=== PATIENT | female | born 1935 | race Caucasian/White ===

== ENCOUNTER 2021-05-27 04:07 | Inpatient (IN) | payer OTHER ==
[2021-05-27] MEDS ORDERED: ACETAMINOPHEN 1000 MG/100 ML VIAL IVPB ONE (04:35)
[2021-05-27] MEDS ORDERED: ACETAMINOPHEN INJECTION 100 ML IVPB ONE (04:44)
[2021-05-27] MEDS ORDERED: MINERAL OIL/PET HY-PHL TOPICAL OINTMENT 454 GM JAR TP ONE (05:42)
[2021-05-27 06:12] LABS: HEMATOCRIT 29.6 % (32.4-45.2); HEMOGLOBIN 9.4 GM/dL (10.7-15.3); MCH 24.6 pg (25.7-33.7); MCHC 31.7 g/dl (32.0-36.0); MEAN CELL VOLUME 77.6 fl (80-96); MEAN PLT VOLUME 7.7 fl (7.5-11.1); PLATELET COUNT 269 10^3/uL (134-434); RBC 3.81 M/mm3 (3.60-5.2); RDW 23.3 % (11.6-15.6); WHITE BLOOD COUNT 7.3 K/mm3 (4.0-10.0)
[2021-05-27 06:31] LABS: CHLORIDE 109 mmol/L (98-107); SODIUM 142 mmol/L (136-145)
[2021-05-27 06:33] LABS: CALCIUM 8.3 mg/dL (8.5-10.1)
[2021-05-27 06:34] LABS: ANION GAP 8 MMOL/L (8-16); BLOOD UREA NITROGEN 14.5 mg/dL (7-18); CO2 25 mmol/L (21-32); GLUCOSE,RANDOM 74 mg/dL (74-106)
[2021-05-27 06:36] LABS: SGPT/ALT 10 U/L (13-61)
[2021-05-27 06:37] LABS: CREATININE 0.7 mg/dL (0.55-1.3); SGOT/AST 13 U/L (15-37)
[2021-05-27 06:38] LABS: BILIRUBIN,TOTAL 0.4 mg/dL (0.2-1); TOT PROT 5.3 g/dl (6.4-8.2)
[2021-05-27 06:40] LABS: ALK PHOS 91 U/L (45-117)
[2021-05-27 06:58] LABS: EPI CELLS 3 /uL (0-25.1); HYALINE CASTS 1 /uL (0-3.1); PH,URINE 5.5 (5.0-8.0); URINE APPEARANCE CLOUDY; URINE BACTERIA >9,000 /uL (0-1359); URINE BILIRUBIN NEGATIVE (NEGATIVE); URINE COLOR YELLOW; URINE GLUCOSE (UA) NEGATIVE (NEGATIVE); URINE KETONE TRACE (NEGATIVE); URINE LEUK ESTERASE 2+ (NEGATIVE); URINE NITRITE POSITIVE (NEGATIVE); URINE PROTEIN 1+ (NEGATIVE); URINE RBC 23 /uL (0-23.9); URINE WBC 1399 /uL (0-25.8)
[2021-05-27] MEDS ORDERED: CEFTRIAXONE 1 GM/50 ML BAG ONE (08:42)
[2021-05-27 10:09] LABS: ANISOCYTOSIS 2+; MACROCYTOSIS 0; PLATELET ESTIMATE NORMAL
[2021-05-27] MEDS ORDERED: ACETAMINOPHEN 325 MG TABLET (FP) PO PRN (11:28)
[2021-05-27] MEDS ORDERED: SODIUM CHLORIDE 1,000 ML IV SCH (11:30)
[2021-05-27] MEDS ORDERED: CEFTRIAXONE 1,000 MG in DEXTROSE 5%-WATER - 50 ML IVPB ONE (12:09)
[2021-05-28] MEDS ORDERED: DEXTROSE 5%-WATER - 50 ML IVPB ONE (08:55)
[2021-05-28] MEDS ORDERED: cefTRIAXone SODIUM 1 GM VIAL ONE (08:55)
[2021-05-28] MEDS: ENOXAPARIN NA (PORCINE) 40 MG/0.4 ML DISP.SYRIN SQ SCH (09:47)
[2021-05-28] MEDS: CEFTRIAXONE 1 GM in DEXTROSE 5%-WATER - 50 ML IVPB SCH (09:47)
[2021-05-28 09:55] LABS: BASO % 0.7 % (0-2.0); EOS % 1.4 % (0-4.5); HEMATOCRIT 29.6 % (32.4-45.2); HEMOGLOBIN 9.1 GM/dL (10.7-15.3); LYMPH % 6.3 % (8-40); MCH 24.7 pg (25.7-33.7); MCHC 30.9 g/dl (32.0-36.0); NEUT % 80.6 % (42.8-82.8); PLATELET COUNT 279 10^3/uL (134-434); RDW 23.6 % (11.6-15.6); WHITE BLOOD COUNT 5.5 K/mm3 (4.0-10.0)
[2021-05-28 10:20] LABS: ALBUMIN 1.8 g/dl (3.4-5.0); BLOOD UREA NITROGEN 10.6 mg/dL (7-18); CALCIUM 8.4 mg/dL (8.5-10.1); MAGNESIUM 1.9 mg/dL (1.8-2.4)
[2021-05-28 10:23] LABS: CREATININE 0.6 mg/dL (0.55-1.3); PHOSPHOROUS 2.3 mg/dL (2.5-4.9)
[2021-05-28 10:24] LABS: BILIRUBIN,TOTAL 0.3 mg/dL (0.2-1)
[2021-05-28 17:33] VITALS: BMI 24.5
[2021-05-28] MEDS: D5-1/2NS+10 MEQ KCL - 10 MEQ/1,000 ML INFUS.BAG IV SCH (18:09)
[2021-05-28] MEDS: QUEtiapine FUMARATE 25 MG TABLET PO PRN (19:48)
[2021-05-29] MEDS: D5-1/2NS+10 MEQ KCL - 10 MEQ/1,000 ML INFUS.BAG IV SCH ×3 (04:29→20:08)
[2021-05-29 08:47] LABS: BASO % 1.2 % (0-2.0); EOS % 7.1 % (0-4.5); HEMATOCRIT 30.6 % (32.4-45.2); HEMOGLOBIN 9.1 GM/dL (10.7-15.3); LYMPH % 11.7 % (8-40); MCH 24.8 pg (25.7-33.7); MCHC 29.9 g/dl (32.0-36.0); MEAN CELL VOLUME 83.1 fl (80-96); MONO % 15.6 % (3.8-10.2); NEUT % 64.4 % (42.8-82.8); PLATELET COUNT 259 10^3/uL (134-434); RBC 3.68 M/mm3 (3.60-5.2); WHITE BLOOD COUNT 4.1 K/mm3 (4.0-10.0)
[2021-05-29] MEDS ORDERED: DEXTROSE 5%-WATER - 50 ML IVPB ONE (09:03)
[2021-05-29] MEDS ORDERED: cefTRIAXone SODIUM 1 GM VIAL ONE (09:03)
[2021-05-29 09:19] LABS: CALCIUM 7.7 mg/dL (8.5-10.1); MAGNESIUM 1.7 mg/dL (1.8-2.4)
[2021-05-29 09:20] LABS: BLOOD UREA NITROGEN 8.7 mg/dL (7-18)
[2021-05-29 09:23] LABS: CREATININE 0.6 mg/dL (0.55-1.3)
[2021-05-29] MEDS ORDERED: POTASSIUM CHLORIDE TABS 20 MEQ TABLET.ER (FP) PO ONE (09:27)
[2021-05-29] MEDS ORDERED: MAGNESIUM SULF 50% (8.12 MEQ/2 ML-1 GM VIAL) IVPB ONE (09:28)
[2021-05-29] MEDS: ENOXAPARIN NA (PORCINE) 40 MG/0.4 ML DISP.SYRIN SQ SCH (10:17)
[2021-05-29] MEDS: amLODIPine BESYLATE 5 MG TABLET (FP) PO SCH (10:17)
[2021-05-29] MEDS: CEFTRIAXONE 1 GM in DEXTROSE 5%-WATER - 50 ML IVPB SCH (10:18)
[2021-05-29] MEDS: ZINC OXIDE/PANTHENOL/VITAMIN E 56 GM TUBE TP SCH ×2 (16:52→23:00)
[2021-05-29] MEDS: QUEtiapine FUMARATE 25 MG TABLET PO PRN (20:07)
[2021-05-30] MEDS: D5-1/2NS+10 MEQ KCL - 10 MEQ/1,000 ML INFUS.BAG IV SCH ×2 (06:17→20:07)
[2021-05-30 08:34] LABS: BASO % 1.1 % (0-2.0); HEMATOCRIT 28.1 % (32.4-45.2); HEMOGLOBIN 8.9 GM/dL (10.7-15.3); LYMPH % 10.2 % (8-40); MCH 25.1 pg (25.7-33.7); MCHC 31.8 g/dl (32.0-36.0); MEAN CELL VOLUME 78.9 fl (80-96); MONO % 15.2 % (3.8-10.2); NEUT % 66.5 % (42.8-82.8); PLATELET COUNT 230 10^3/uL (134-434); RBC 3.56 M/mm3 (3.60-5.2); RDW 23.5 % (11.6-15.6); WHITE BLOOD COUNT 4.7 K/mm3 (4.0-10.0)
[2021-05-30 09:41] LABS: BLOOD UREA NITROGEN 5.8 mg/dL (7-18)
[2021-05-30 09:42] LABS: CALCIUM 7.5 mg/dL (8.5-10.1)
[2021-05-30 09:44] LABS: CREATININE 0.6 mg/dL (0.55-1.3)
[2021-05-30] MEDS ORDERED: cefTRIAXone SODIUM 1 GM VIAL ONE (10:17)
[2021-05-30] MEDS ORDERED: DEXTROSE 5%-WATER - 50 ML IVPB ONE (10:18)
[2021-05-30] MEDS: ZINC OXIDE/PANTHENOL/VITAMIN E 56 GM TUBE TP SCH ×2 (10:20→21:20)
[2021-05-30] MEDS: ENOXAPARIN NA (PORCINE) 40 MG/0.4 ML DISP.SYRIN SQ SCH (10:20)
[2021-05-30] MEDS: CEFTRIAXONE 1 GM in DEXTROSE 5%-WATER - 50 ML IVPB SCH (10:20)
[2021-05-30] MEDS: amLODIPine BESYLATE 5 MG TABLET (FP) PO SCH (10:20)
[2021-05-30 10:32] LABS: ANISOCYTOSIS 2+; MACROCYTOSIS 0; PLATELET ESTIMATE NORMAL
[2021-05-31] MEDS: D5-1/2NS+10 MEQ KCL - 10 MEQ/1,000 ML INFUS.BAG IV SCH (06:57)
[2021-05-31] MEDS ORDERED: cefTRIAXone SODIUM 1 GM VIAL ONE (09:39)
[2021-05-31] MEDS ORDERED: DEXTROSE 5%-WATER - 50 ML IVPB ONE (09:40)
[2021-05-31 09:50] LABS: BASO % 0.8 % (0-2.0); EOS % 4.9 % (0-4.5); HEMATOCRIT 27.5 % (32.4-45.2); HEMOGLOBIN 8.8 GM/dL (10.7-15.3); LYMPH % 8.6 % (8-40); MCH 25.2 pg (25.7-33.7); MCHC 32.1 g/dl (32.0-36.0); MEAN CELL VOLUME 78.6 fl (80-96); MEAN PLT VOLUME 7.9 fl (7.5-11.1); MONO % 11.6 % (3.8-10.2); NEUT % 74.1 % (42.8-82.8); PLATELET COUNT 234 10^3/uL (134-434); RDW 23.7 % (11.6-15.6); WHITE BLOOD COUNT 5.7 K/mm3 (4.0-10.0)
[2021-05-31] MEDS: amLODIPine BESYLATE 5 MG TABLET (FP) PO SCH (09:52)
[2021-05-31] MEDS: ENOXAPARIN NA (PORCINE) 40 MG/0.4 ML DISP.SYRIN SQ SCH (09:52)
[2021-05-31] MEDS: CEFTRIAXONE 1 GM in DEXTROSE 5%-WATER - 50 ML IVPB SCH (09:52)
[2021-05-31] MEDS: ZINC OXIDE/PANTHENOL/VITAMIN E 56 GM TUBE TP SCH ×2 (09:53→21:17)
[2021-05-31 10:28] LABS: CHLORIDE 110 mmol/L (98-107); SODIUM 140 mmol/L (136-145)
[2021-05-31 11:18] LABS: ANION GAP 6 MMOL/L (8-16); CO2 24 mmol/L (21-32)
[2021-05-31 11:33] LABS: SGPT/ALT < 6 U/L (13-61)
[2021-05-31 11:35] LABS: CALCIUM 7.8 mg/dL (8.5-10.1)
[2021-05-31 11:36] LABS: BLOOD UREA NITROGEN 4.9 mg/dL (7-18); GLUCOSE,RANDOM 86 mg/dL (74-106)
[2021-05-31 11:39] LABS: CREATININE 0.5 mg/dL (0.55-1.3); SGOT/AST 10 U/L (15-37)
[2021-05-31 11:41] LABS: ALK PHOS 83 U/L (45-117); BILIRUBIN,TOTAL 0.2 mg/dL (0.2-1); TOT PROT 4.2 g/dl (6.4-8.2)
[2021-05-31 11:45] LABS: ALBUMIN 1.4 g/dl (3.4-5.0)
[2021-06-01] MEDS: ENOXAPARIN NA (PORCINE) 40 MG/0.4 ML DISP.SYRIN SQ SCH (09:11)
[2021-06-01] MEDS ORDERED: cefTRIAXone SODIUM 1 GM VIAL ONE (10:33)
[2021-06-01] MEDS ORDERED: DEXTROSE 5%-WATER - 50 ML IVPB ONE (10:34)
[2021-06-01] MEDS: CEFTRIAXONE 1 GM in DEXTROSE 5%-WATER - 50 ML IVPB SCH (10:54)
[2021-06-01] MEDS: amLODIPine BESYLATE 5 MG TABLET (FP) PO SCH (10:54)
[2021-06-01] MEDS: ZINC OXIDE/PANTHENOL/VITAMIN E 56 GM TUBE TP SCH ×2 (12:13→22:52)
[2021-06-01] MEDS ORDERED: PT OWN MED DRAWER 7, Y5N ONE (15:06)
[2021-06-01] MEDS: QUEtiapine FUMARATE 25 MG TABLET PO PRN (23:22)
[2021-06-02] MEDS ORDERED: cefTRIAXone SODIUM 1 GM VIAL ONE (08:57)
[2021-06-02] MEDS ORDERED: DEXTROSE 5%-WATER - 50 ML IVPB ONE (08:58)
[2021-06-02] MEDS: CEFTRIAXONE 1 GM in DEXTROSE 5%-WATER - 50 ML IVPB SCH (09:57)
[2021-06-02] MEDS: ENOXAPARIN NA (PORCINE) 40 MG/0.4 ML DISP.SYRIN SQ SCH (09:57)
[2021-06-02] MEDS: amLODIPine BESYLATE 5 MG TABLET (FP) PO SCH (09:57)
[2021-06-02] MEDS: ZINC OXIDE/PANTHENOL/VITAMIN E 56 GM TUBE TP SCH ×2 (09:58→22:26)
[2021-06-03] MEDS ORDERED: DEXTROSE 5%-WATER - 50 ML IVPB ONE (10:49)
[2021-06-03] MEDS ORDERED: cefTRIAXone SODIUM 1 GM VIAL ONE (10:49)
[2021-06-03] MEDS: CEFTRIAXONE 1 GM in DEXTROSE 5%-WATER - 50 ML IVPB SCH (10:55)
[2021-06-03] MEDS: amLODIPine BESYLATE 5 MG TABLET (FP) PO SCH (10:59)
[2021-06-03] MEDS: ENOXAPARIN NA (PORCINE) 40 MG/0.4 ML DISP.SYRIN SQ SCH (10:59)
[2021-06-03] MEDS: ZINC OXIDE/PANTHENOL/VITAMIN E 56 GM TUBE TP SCH (11:00)
[2021-06-03 12:44] VITALS: BP 113/61; PULSE 75; TEMP 98
== END 2021-06-03 13:36 | DRG 689 ==
LOC: JER 04:07 → JERBED 07:06 → J8W 15:12
PROVIDERS: ADMIT Internal Medicine
DX: N39.0 Urinary tract infection, site not specified (principal); G93.41 Metabolic encephalopathy; C20 Malignant neoplasm of rectum; F03.91 Unspecified dementia, unspecified severity, with behavioral disturbance; B96.20 Unspecified Escherichia coli [E. coli] as the cause of diseases classified elsewhere; R44.1 Visual hallucinations; I10 Essential (primary) hypertension; R62.7 Adult failure to thrive; R15.9 Full incontinence of feces; Z68.24 Body mass index [BMI] 24.0-24.9, adult; L89.151 Pressure ulcer of sacral region, stage 1; R19.09 Other intra-abdominal and pelvic swelling, mass and lump; D64.9 Anemia, unspecified; E88.09 Other disorders of plasma-protein metabolism, not elsewhere classified; K62.7 Radiation proctitis; E16.2 Hypoglycemia, unspecified; E87.6 Hypokalemia; E86.0 Dehydration
CPT/HCPCS: 36415; 70450-TC; 80048; 80053; 81003; 83735; 84100; 84484; 85025; 87086; 87186; 93005; 93010; 97116-GP; 97162-GP; 99285-25; C9803; J0131; U0003; U0005

== ENCOUNTER 2021-06-14 14:14 | Observation (INO) | payer OTHER ==
[2021-06-14 14:34] VITALS: BMI 22.4
[2021-06-14 16:25] LABS: BASO % 0.9 % (0-2.0); EOS % 3.1 % (0-4.5); HEMATOCRIT 29.9 % (32.4-45.2); HEMOGLOBIN 9.5 GM/dL (10.7-15.3); LYMPH % 15.4 % (8-40); MCH 25.8 pg (25.7-33.7); MCHC 31.8 g/dl (32.0-36.0); MEAN CELL VOLUME 81.2 fl (80-96); MEAN PLT VOLUME 7.9 fl (7.5-11.1); NEUT % 67.6 % (42.8-82.8); PLATELET COUNT 210 10^3/uL (134-434); RBC 3.69 M/mm3 (3.60-5.2); RDW 25.6 % (11.6-15.6); WHITE BLOOD COUNT 5.6 K/mm3 (4.0-10.0)
[2021-06-14 16:45] LABS: URINE APPEARANCE CLEAR; URINE BILIRUBIN NEGATIVE (NEGATIVE); URINE COLOR YELLOW; URINE GLUCOSE (UA) NEGATIVE (NEGATIVE); URINE KETONE NEGATIVE (NEGATIVE); URINE LEUK ESTERASE NEGATIVE (NEGATIVE); URINE NITRITE NEGATIVE (NEGATIVE); URINE PROTEIN NEGATIVE (NEGATIVE); URINE UROBILINOGEN 0.2 mg/dL (0.2-1.0)
[2021-06-14 16:57] LABS: CALCIUM 8.6 mg/dL (8.5-10.1)
[2021-06-14 16:58] LABS: ALBUMIN 1.9 g/dl (3.4-5.0); BLOOD UREA NITROGEN 18.1 mg/dL (7-18)
[2021-06-14 17:01] LABS: CREATININE 0.6 mg/dL (0.55-1.3)
[2021-06-14 17:02] LABS: TOT PROT 5.1 g/dl (6.4-8.2)
[2021-06-14 17:03] LABS: BILIRUBIN,TOTAL 0.3 mg/dL (0.2-1)
[2021-06-14 18:17] LABS: OVALOCYTE 1+
[2021-06-14] MEDS ORDERED: CEFTRIAXONE 1,000 MG in DEXTROSE 5%-WATER - 50 ML IVPB ONE (20:06)
[2021-06-14] MEDS ORDERED: CEFTRIAXONE 1 GM/50 ML BAG ONE (20:11)
[2021-06-14] MEDS ORDERED: PIPERACILLIN/TAZOB 4.5 GM 4.5 GM in DEXTROSE 5%-WATER 100 ML IVPB ONE (21:44)
[2021-06-14] MEDS ORDERED: ACETAMINOPHEN 325 MG TABLET (FP) PO PRN (23:15)
[2021-06-15] MEDS ORDERED: HEPARIN NA (PORCINE) 5,000 UNITS/ML 1ML VIAL ONE (00:20)
[2021-06-15] MEDS: HEPARIN NA (PORCINE) 5,000 UNITS/ML 1ML VIAL SQ SCH ×4 (00:35→22:41)
[2021-06-15] MEDS ORDERED: DEXTROSE 5%-WATER - 50 ML IVPB ONE ×3 (03:19→17:24)
[2021-06-15] MEDS ORDERED: PIPERACILLIN/TAZOBACTAM 3.375 GM VIAL IVPB ONE ×3 (03:19→17:24)
[2021-06-15] MEDS: PIPERACILLIN/TAZOB 3.375 GM 3.375 GM in DEXTROSE 5%-WATER - 50 ML IVPB SCH ×4 (03:24→17:28)
[2021-06-15 08:09] LABS: BASO % 3.1 % (0-2.0); EOS % 8.1 % (0-4.5); HEMATOCRIT 28.7 % (32.4-45.2); HEMOGLOBIN 9.2 GM/dL (10.7-15.3); LYMPH % 17.2 % (8-40); MCH 26.3 pg (25.7-33.7); MCHC 32.1 g/dl (32.0-36.0); MEAN CELL VOLUME 81.8 fl (80-96); MONO % 13.4 % (3.8-10.2); NEUT % 58.2 % (42.8-82.8); PLATELET COUNT 201 10^3/uL (134-434); RBC 3.51 M/mm3 (3.60-5.2); RDW 25.3 % (11.6-15.6); WHITE BLOOD COUNT 3.6 K/mm3 (4.0-10.0)
[2021-06-15 08:21] LABS: CHLORIDE 110 mmol/L (98-107); SODIUM 141 mmol/L (136-145)
[2021-06-15 08:31] LABS: CALCIUM 8.4 mg/dL (8.5-10.1)
[2021-06-15 08:32] LABS: BLOOD UREA NITROGEN 14.6 mg/dL (7-18); GLUCOSE,RANDOM 74 mg/dL (74-106); MAGNESIUM 2.2 mg/dL (1.8-2.4)
[2021-06-15 08:34] LABS: ALBUMIN 1.7 g/dl (3.4-5.0)
[2021-06-15 08:35] LABS: ANION GAP 8 MMOL/L (8-16); CO2 23 mmol/L (21-32); CREATININE 0.7 mg/dL (0.55-1.3); SGOT/AST 8 U/L (15-37)
[2021-06-15 08:36] LABS: BILIRUBIN,TOTAL 0.3 mg/dL (0.2-1); TOT PROT 4.9 g/dl (6.4-8.2)
[2021-06-15 08:37] LABS: ALK PHOS 98 U/L (45-117)
[2021-06-15 08:56] LABS: IRON SERUM 28 ug/dL (50-175); TOTAL IRON BINDING CAPACITY 119 ug/dL (250-450)
[2021-06-15 09:01] LABS: SGPT/ALT < 6 U/L (13-61)
[2021-06-16] MEDS ORDERED: PIPERACILLIN/TAZOBACTAM 3.375 GM VIAL IVPB ONE ×3 (02:10→16:33)
[2021-06-16] MEDS ORDERED: DEXTROSE 5%-WATER - 50 ML IVPB ONE ×3 (02:10→16:33)
[2021-06-16] MEDS: PIPERACILLIN/TAZOB 3.375 GM 3.375 GM in DEXTROSE 5%-WATER - 50 ML IVPB SCH ×3 (02:19→18:12)
[2021-06-16] MEDS: HEPARIN NA (PORCINE) 5,000 UNITS/ML 1ML VIAL SQ SCH ×3 (05:48→21:21)
[2021-06-16 08:43] LABS: HEMATOCRIT 27.5 % (32.4-45.2); HEMOGLOBIN 8.8 GM/dL (10.7-15.3); MCH 26.4 pg (25.7-33.7); MCHC 32.2 g/dl (32.0-36.0); MEAN PLT VOLUME 8.2 fl (7.5-11.1); PLATELET COUNT 208 10^3/uL (134-434); RBC 3.35 M/mm3 (3.60-5.2); RDW 25.6 % (11.6-15.6); WHITE BLOOD COUNT 3.6 K/mm3 (4.0-10.0)
[2021-06-16 09:55] LABS: TOT PROT 4.8 g/dl (6.4-8.2)
[2021-06-16 09:56] LABS: ANISOCYTOSIS 1+; MACROCYTOSIS 1+; PLATELET ESTIMATE NORMAL
[2021-06-16 09:58] LABS: BILIRUBIN,TOTAL 0.2 mg/dL (0.2-1); BLOOD UREA NITROGEN 14.7 mg/dL (7-18); CALCIUM 8.4 mg/dL (8.5-10.1)
[2021-06-16 09:59] LABS: ALBUMIN 1.7 g/dl (3.4-5.0)
[2021-06-16 10:01] LABS: CREATININE 0.8 mg/dL (0.55-1.3)
[2021-06-17] MEDS ORDERED: PIPERACILLIN/TAZOBACTAM 3.375 GM VIAL IVPB ONE ×3 (02:29→17:24)
[2021-06-17] MEDS ORDERED: DEXTROSE 5%-WATER - 50 ML IVPB ONE ×3 (02:29→17:24)
[2021-06-17] MEDS: PIPERACILLIN/TAZOB 3.375 GM 3.375 GM in DEXTROSE 5%-WATER - 50 ML IVPB SCH ×3 (02:37→17:32)
[2021-06-17] MEDS: HEPARIN NA (PORCINE) 5,000 UNITS/ML 1ML VIAL SQ SCH ×3 (05:39→22:24)
[2021-06-17 10:04] LABS: HEMATOCRIT 29.1 % (32.4-45.2); HEMOGLOBIN 9.4 GM/dL (10.7-15.3); MCH 26.5 pg (25.7-33.7); MCHC 32.1 g/dl (32.0-36.0); MEAN CELL VOLUME 82.7 fl (80-96); MEAN PLT VOLUME 8.1 fl (7.5-11.1); PLATELET COUNT 194 10^3/uL (134-434); RBC 3.52 M/mm3 (3.60-5.2); RDW 25.6 % (11.6-15.6); WHITE BLOOD COUNT 3.8 K/mm3 (4.0-10.0)
[2021-06-17 10:51] LABS: ALBUMIN 1.9 g/dl (3.4-5.0); BLOOD UREA NITROGEN 15.9 mg/dL (7-18); CALCIUM 8.6 mg/dL (8.5-10.1)
[2021-06-17 10:54] LABS: CREATININE 0.8 mg/dL (0.55-1.3)
[2021-06-17 10:56] LABS: BILIRUBIN,TOTAL 0.2 mg/dL (0.2-1); TOT PROT 5.1 g/dl (6.4-8.2)
[2021-06-17] MEDS: CLOTRIMAZOLE/BETAMET DIPROP 15 GM TUBE TP SCH ×2 (14:43→22:24)
[2021-06-18] MEDS ORDERED: PIPERACILLIN/TAZOBACTAM 3.375 GM VIAL IVPB ONE ×2 (02:32→09:06)
[2021-06-18] MEDS ORDERED: DEXTROSE 5%-WATER - 50 ML IVPB ONE ×2 (02:32→09:06)
[2021-06-18] MEDS: PIPERACILLIN/TAZOB 3.375 GM 3.375 GM in DEXTROSE 5%-WATER - 50 ML IVPB SCH ×2 (02:46→09:15)
[2021-06-18] MEDS: HEPARIN NA (PORCINE) 5,000 UNITS/ML 1ML VIAL SQ SCH ×2 (05:45→13:16)
[2021-06-18] MEDS: CLOTRIMAZOLE/BETAMET DIPROP 15 GM TUBE TP SCH (09:16)
[2021-06-18 11:49] VITALS: BP 137/64; PULSE 63; TEMP 98.3
== END 2021-06-18 17:10 ==
LOC: JER 14:14 → JERBED 19:42 → INTOOBSV 19:42 → UNDOADMOB 19:42 → J8W 06-15 02:33 → JERBED 06-15 02:33 → J8W 06-16 09:44
DX: N93.9 Abnormal uterine and vaginal bleeding, unspecified (principal); N39.0 Urinary tract infection, site not specified; D50.9 Iron deficiency anemia, unspecified; R30.0 Dysuria; I10 Essential (primary) hypertension; F03.90 Unspecified dementia, unspecified severity, without behavioral disturbance, psychotic disturbance, mood disturbance, and anxiety; Z85.42 Personal history of malignant neoplasm of other parts of uterus; Z85.048 Personal history of other malignant neoplasm of rectum, rectosigmoid junction, and anus; Z87.891 Personal history of nicotine dependence; F39 Unspecified mood [affective] disorder; N82.4 Other female intestinal-genital tract fistulae; R53.1 Weakness
CPT/HCPCS: 36415; 71045-TC-FY; 74177-TC; 80053; 81003; 83540; 83550; 83605; 83735; 84100; 84484; 85025; 85027; 86850; 86900; 86901; 87040; 87086; 93005; 93010; 96365; 96367; 96375; 97116-GP; 97161-GP; 99285-25; C9803; G0378; J1644; Q9967; U0003; U0005

== ENCOUNTER 2021-07-19 11:41 | Observation (INO) | payer OTHER ==
[2021-07-19 12:14] VITALS: BMI 19.7
[2021-07-19 15:24] LABS: BASO % 0.5 % (0-2.0); EOS % 1.7 % (0-4.5); HEMATOCRIT 33.3 % (32.4-45.2); HEMOGLOBIN 10.9 GM/dL (10.7-15.3); MCH 28.1 pg (25.7-33.7); MCHC 32.6 g/dl (32.0-36.0); MEAN PLT VOLUME 8.1 fl (7.5-11.1); MONO % 10.1 % (3.8-10.2); NEUT % 74.7 % (42.8-82.8); PLATELET COUNT 243 10^3/uL (134-434); RBC 3.88 M/mm3 (3.60-5.2); WHITE BLOOD COUNT 8.4 K/mm3 (4.0-10.0)
[2021-07-19 15:32] LABS: INR 1.13 (0.83-1.09); PROTHROMBIN TIME (PATIENT) 12.7 SEC (9.7-13.0)
[2021-07-19 15:40] LABS: CALCIUM 9.3 mg/dL (8.5-10.1)
[2021-07-19 15:41] LABS: ALBUMIN 2.2 g/dl (3.4-5.0); BLOOD UREA NITROGEN 29.4 mg/dL (7-18)
[2021-07-19 15:44] LABS: BILIRUBIN,DIRECT 0.1 mg/dL (0.0-0.2); CREATININE 0.7 mg/dL (0.55-1.3)
[2021-07-19 15:45] LABS: BILIRUBIN,TOTAL 0.3 mg/dL (0.2-1); TOT PROT 5.8 g/dl (6.4-8.2)
[2021-07-19 17:18] LABS: RETICULOCYTES 0.94 % (0.5-1.5)
[2021-07-20] MEDS ORDERED: DEXTROSE 5%-0.45% SALINE 1,000 ML IV SCH (04:15)
[2021-07-20 07:05] LABS: BASO % 0.6 % (0-2.0); EOS % 3.4 % (0-4.5); HEMATOCRIT 31.9 % (32.4-45.2); HEMOGLOBIN 10.3 GM/dL (10.7-15.3); LYMPH % 13.6 % (8-40); MCHC 32.2 g/dl (32.0-36.0); MEAN CELL VOLUME 86.9 fl (80-96); MONO % 13.1 % (3.8-10.2); NEUT % 69.3 % (42.8-82.8); PLATELET COUNT 224 10^3/uL (134-434); RBC 3.68 M/mm3 (3.60-5.2); RDW 19.8 % (11.6-15.6); WHITE BLOOD COUNT 7.6 K/mm3 (4.0-10.0)
[2021-07-20 07:33] LABS: BLOOD UREA NITROGEN 32.2 mg/dL (7-18); CALCIUM 9.2 mg/dL (8.5-10.1)
[2021-07-20 07:34] LABS: ALBUMIN 2.1 g/dl (3.4-5.0)
[2021-07-20 07:37] LABS: CREATININE 0.8 mg/dL (0.55-1.3)
[2021-07-20 07:38] LABS: BILIRUBIN,TOTAL 0.3 mg/dL (0.2-1); TOT PROT 5.6 g/dl (6.4-8.2)
[2021-07-20] MEDS ORDERED: IRON SUCROSE INJECTION 200 MG in SODIUM CHLORIDE 90 ML IVPB ONE (14:30)
[2021-07-21] MEDS: QUEtiapine FUMARATE 25 MG TABLET PO SCH ×2 (13:25→21:40)
[2021-07-22] MEDS: QUEtiapine FUMARATE 25 MG TABLET PO SCH ×2 (10:50→10:52)
[2021-07-22] MEDS: morphine SULFATE 10 MG/5 ML UNIT-DOSE CUP PO PRN (12:55)
[2021-07-23] MEDS: morphine SULFATE 10 MG/5 ML UNIT-DOSE CUP PO PRN ×3 (06:06→22:49)
[2021-07-23] MEDS: NYSTATIN/TRIAMCINOLONE TOPICAL CREAM 15 GM TUBE TP SCH ×3 (16:05→22:08)
[2021-07-24] MEDS: morphine SULFATE 10 MG/5 ML UNIT-DOSE CUP PO PRN ×4 (03:08→21:20)
[2021-07-24] MEDS: NYSTATIN/TRIAMCINOLONE TOPICAL CREAM 15 GM TUBE TP SCH ×2 (09:20→21:23)
[2021-07-24] MEDS: QUEtiapine FUMARATE 25 MG TABLET PO PRN ×2 (17:28→21:23)
[2021-07-24] MEDS: NITROFURANTOIN MACROCRYSTAL 50 MG CAPSULE (FP) PO SCH (21:23)
[2021-07-25] MEDS: morphine SULFATE 10 MG/5 ML UNIT-DOSE CUP PO PRN (06:25)
[2021-07-25] MEDS: NYSTATIN/TRIAMCINOLONE TOPICAL CREAM 15 GM TUBE TP SCH ×2 (10:53→21:50)
[2021-07-25] MEDS ORDERED: morphine SULFATE 10 MG/5 ML UNIT-DOSE CUP PO PRN (16:01)
[2021-07-25] MEDS: QUEtiapine FUMARATE 25 MG TABLET PO PRN (21:44)
[2021-07-25] MEDS: NITROFURANTOIN MACROCRYSTAL 50 MG CAPSULE (FP) PO SCH (21:44)
[2021-07-26] MEDS: NYSTATIN/TRIAMCINOLONE TOPICAL CREAM 15 GM TUBE TP SCH ×2 (12:47→21:01)
[2021-07-26] MEDS: NITROFURANTOIN MACROCRYSTAL 50 MG CAPSULE (FP) PO SCH (21:01)
[2021-07-27] MEDS: QUEtiapine FUMARATE 25 MG TABLET PO PRN (00:55)
[2021-07-27] MEDS: NYSTATIN/TRIAMCINOLONE TOPICAL CREAM 15 GM TUBE TP SCH (10:41)
[2021-07-27 11:46] VITALS: BP 118/71; PULSE 78; TEMP 96.7
== END 2021-07-27 15:36 ==
LOC: JER 11:41 → JERBED 19:15 → INTOOBSV 19:15 → UNDOADMOB 19:15 → JERBED 07-20 11:26 → J4W 07-21 01:37 → J6S 07-22 01:37
PROVIDERS: ADMIT Internal Medicine; ATTEND Internal Medicine
PROC: 3E033GC Introduction of Other Therapeutic Substance into Peripheral Vein, Percutaneous Approach (ICD-10-PCS; principal; 2021-07-20)
DX: K57.90 Diverticulosis of intestine, part unspecified, without perforation or abscess without bleeding (principal); I12.9 Hypertensive chronic kidney disease with stage 1 through stage 4 chronic kidney disease, or unspecified chronic kidney disease; F03.90 Unspecified dementia, unspecified severity, without behavioral disturbance, psychotic disturbance, mood disturbance, and anxiety; C20 Malignant neoplasm of rectum; Z20.822 Contact with and (suspected) exposure to COVID-19; Z86.73 Personal history of transient ischemic attack (TIA), and cerebral infarction without residual deficits; J45.909 Unspecified asthma, uncomplicated; K64.9 Unspecified hemorrhoids; N18.9 Chronic kidney disease, unspecified; M19.90 Unspecified osteoarthritis, unspecified site; N82.3 Fistula of vagina to large intestine; C34.90 Malignant neoplasm of unspecified part of unspecified bronchus or lung; C50.919 Malignant neoplasm of unspecified site of unspecified female breast; Z92.3 Personal history of irradiation; R19.09 Other intra-abdominal and pelvic swelling, mass and lump; D50.9 Iron deficiency anemia, unspecified; R16.0 Hepatomegaly, not elsewhere classified
CPT/HCPCS: 36415; 71045-TC-FY; 80053; 82248; 82272; 82728; 83540; 83550; 83615; 85025; 85045; 85610; 85730; 86850; 86900; 86901; 93005; 93010; 96365; 96375; 99285-25; C9803-CS; G0378; J1756; U0003; U0005